=== PATIENT | female | born 1940 | race Caucasian/White ===

== ENCOUNTER 2018-10-26 12:51 | Outpatient (CLI) | payer MEDICARE ==
--- NOTE | 2018-10-26 16:11 | MRI ---
MRI OF THE LUMBAR SPINE 10/26/18 COMPARISON: None. HISTORY: Right lower extremity tingling from hip to foot, sciatica, lumbar spine radiculopathy. TECHNIQUE: Multiplanar and multisequence MR imaging of the lumbar spine is obtained without contrast. FINDINGS: The sagittal STIR imaging demonstrates no focal area of osseous marrow edema. There is anterolisthesi s of L4 on L5 measuring 5 mm. The conus medullaris terminates at the L1-2 level assuming five lumbar type vertebral bodies. T12-L1: Intervertebral disc height and signal intensity within normal limits with no significant cent ral canal or neural foraminal stenosis. L1-2: Mild bilateral facet hypertrophy. Disc space narrowing and disc desiccation and central disc pr otrusion noted with inferior migration causing a mild degree of central canal stenosis. The central disc protrusion with inferior migration measures approximately 7 mm AP dimension. No neural foraminal stenosis. L2-3: Mild bilateral facet hypertrophy. There is disc desiccation and minimal disc bulge with no cent ral canal or neural foraminal stenosis. L3-4: There is mild bilateral facet hypertrophy and hypertrophy of the ligamentum flavum. There is a small foraminal disc protrusion on the left. There is no significant central canal or neural foramina l stenosis. L4-5: Disc desiccation, disc space narrowing and disc osteophyte complex present. Severe central parth l stenosis. Bilateral facet hypertrophy present. Mild bilateral neural foraminal stenosis. L5-S1: Intervertebral disc height and signal intensity within normal limits with no significant centr al canal or neural foraminal stenosis. The imaged retroperitoneal structures demonstrate no acute findings. Nonspecific adrenal lesion noted on the left measuring 1.3 cm. IMPRESSION: 1. 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 2. 1.3 cm nonspecific adrenal mass. Recommend further assessment via CT examination of the abdom en with and without using an adrenal mass protocol. POS: COMPA
== END 2018-10-26 12:52 | disposition home or self-care (01) ==
LOC: SCSMRI 12:51
PROVIDERS: ATTEND Psychiatry & Neurology Neurology
DX: M51.16 Intervertebral disc disorders with radiculopathy, lumbar region (principal); M48.061 Spinal stenosis, lumbar region without neurogenic claudication; E27.9 Disorder of adrenal gland, unspecified
CPT/HCPCS: 72148

== ENCOUNTER 2019-01-13 03:38 | Outpatient (CLI) | payer MEDICARE ==
[2019-01-13 11:38] LABS: Hemoglobin 13.8 g/dL (12.0-16.0); Mean Corpuscular HGB CONC 33.8 g/dL (32.0-36.0); Mean Corpuscular Hemoglobin 30.1 pg (27.0-31.0); Mean Corpuscular Volume 89.1 fL (78.0-98.0); Mean Platelet Volume 7.3 fL (7.4-10.4); Platelet Count 275 thou/uL (130-400); RBC Distribution Width 10.9 % (11.5-14.5); Red Blood Cell (RBC) Count 4.57 mill/uL (4.20-5.40); White Blood Cell (WBC) Count 7.7 thou/uL (4.8-10.8)
[2019-01-13 11:44] LABS: INR-International Normal Ratio 0.9; PTT 30.4 SEC (22.9-36.1); Prothrombin Time 12.6 SEC (12.0-14.7)
[2019-01-13 12:02] LABS: Anion Gap 10 mmol/L (10-20); BUN (Urea Nitrogen) 12 mg/dL (9.8-20.1); Calc. Creatinine Clearance 0 mL/min (70-130); Calcium 9.4 mg/dL (7.8-10.44); Carbon Dioxide 27 mmol/L (23-31); Chloride 100 mmol/L (98-107); Estimated GFR-MDRD 71; Glucose 86 mg/dL (83-110); Potassium 4.2 mmol/L (3.5-5.1); Sodium 133 mmol/L (136-145)
--- NOTE | 2019-01-16 17:53 | EKG ---
Test Reason : Blood Pressure : / mmHG Vent. Rate : 057 BPM Atrial Rate : 057 BPM P-R Int : 160 ms QRS Dur : 074 ms QT Int : 430 ms P-R-T Axes : 073 063 073 degrees QTc Int : 418 ms Sinus bradycardia Septal infarct , age undetermined Abnormal ECG No previous ECGs available Confirmed by KEITH STAPLETON (2) on 01/16/2019 5:53:17 PM Referred By: MICHOACANO Confirmed By:KEITH STAPLETON
== END 2019-01-13 03:39 | disposition home or self-care (01) ==
LOC: LABBT 03:38
PROVIDERS: ATTEND Surgery
DX: Z01.818 Encounter for other preprocedural examination (principal); M54.16 Radiculopathy, lumbar region; M48.061 Spinal stenosis, lumbar region without neurogenic claudication
CPT/HCPCS: 80048; 85027; 85610; 85730; 93005; 93010

== ENCOUNTER 2019-01-19 07:17 | Day surgery (SDC) | payer MEDICARE ==
[2019-01-13 10:27] VITALS: BMI 25.4
[2019-01-19] MEDS ORDERED: Thrombin 5000 UNITS/5 ML VIAL ONE (07:51)
[2019-01-19] MEDS ORDERED: Bacitracin Zinc Ointment 30 gm TUBE ONE (07:51)
[2019-01-19] MEDS ORDERED: Levofloxacin 500 mg/D5W 100 ml Premix Bag ONE (08:03)
[2019-01-19] MEDS ORDERED: Clindamycin/D5W 900 mg/50 ml Premix Bag ONE (08:03)
[2019-01-19] MEDS ORDERED: Sodium Chloride 0.9% 10 ML ONE (08:03)
[2019-01-19] MEDS ORDERED: Fentanyl 100 MCG/2 ML VIAL ONE ×3 (08:11→12:45)
[2019-01-19] MEDS ORDERED: Mag-Al 1200 mg/1200 mg/30 ML UDCUP PO PRN (11:34)
[2019-01-19] MEDS ORDERED: Morphine 2 MG/ML SYRINGE SLOW IVP PRN (11:34)
[2019-01-19] MEDS ORDERED: Promethazine HCl 25 MG/ML VIAL IVPB PRN (11:34)
[2019-01-19] MEDS ORDERED: Fleet Enema 133 ML BOT PR PRN (11:34)
[2019-01-19] MEDS ORDERED: Bisacodyl 10 MG SUPP PR PRN (11:34)
[2019-01-19] MEDS ORDERED: Acetaminophen 325 MG TAB PO PRN (11:34)
[2019-01-19] MEDS ORDERED: Milk Of Magnesia 30 ML UDCUP PO PRN (11:34)
[2019-01-19] MEDS ORDERED: Loteprednol Etabonate 0.5% Ophth Suspension 5 ml Bottle EA EYE PRN (11:37)
[2019-01-19] MEDS ORDERED: diphenhydrAMINE 50 MG/ML VIAL ONE ×2 (12:02→12:03)
[2019-01-19] MEDS ORDERED: Morphine 4 MG/ML VIAL ONE (12:29)
[2019-01-19] MEDS ORDERED: Promethazine HCl 12.5 MG in Sodium Chloride 0.9% 50 ML IVPB PRN (13:42)
[2019-01-19] MEDS ORDERED: Morphine 2 MG/ML SYRINGE ONE (13:45)
[2019-01-19] MEDS ORDERED: ePHEDrine 50 MG/ML VIAL ONE (14:19)
[2019-01-19] MEDS ORDERED: PROPOFOL 200 MG/20 ML VIAL ONE (14:19)
[2019-01-19] MEDS ORDERED: Rocuronium Bromide 10 MG/ML (10ML VIAL) ONE (14:19)
[2019-01-19] MEDS ORDERED: Ondansetron PF 4 MG/2 ML Vial ONE (14:19)
[2019-01-19] MEDS ORDERED: Dexamethasone 20 MG/5 ML VIAL ONE (14:19)
[2019-01-19] MEDS ORDERED: Glycopyrrolate 0.2 MG/ML 5 ML SYRINGE ONE (14:19)
[2019-01-19] MEDS ORDERED: Lidocaine 1% PF 5 ML VIAL ONE (14:19)
[2019-01-19] MEDS: Sodium Chloride 0.9% 1,000 ML IV SCH (14:50)
[2019-01-19] MEDS ORDERED: Promethazine HCl 25 MG/ML VIAL IM/IV PRN (15:00)
[2019-01-19] MEDS ORDERED: Morphine 4 MG/ML VIAL SLOW IVP PRN (15:00)
[2019-01-19] MEDS ORDERED: Ondansetron HCl/PF 4 MG/2 ML Vial IVP PRN (15:00)
[2019-01-19] MEDS ORDERED: Morphine Sulfate 2 MG/ML SYRINGE SLOW IVP PRN (15:17)
--- NOTE | 2019-01-19 15:52 | OP ---
DATE OF PROCEDURE: 01/19/2019 OPERATING ROOM: OR 11. WOUND CLASSIFICATION: Type 1 wound. SR VICE PRESIDENT: Tato Garcia PA-C PREPROCEDURE DIAGNOSIS: Low back and leg pain with lumbar disk extrusion and lumbar stenosis. POSTPROCEDURE DIAGNOSIS: Low back and leg pain with lumbar disk extrusion and lumbar stenosis. PROCEDURES PERFORMED: 1. L4-L5 laminectomy, partial facetectomy, foraminotomy with left L4-L5 diskectomy. 2. Use of operative microscope for microdissection. DESCRIPTION OF PROCEDURE: After informed consent was obtained from the patient, the patient was brought to the OR. Proper patient, pause, and identification were carried out. She was placed under excellent endotracheal anesthesia and positioned prone on the OR table. All appropriate points were padded. We identified the L4-L5 dorsal spines. A linear khalif was made over this area. This region was sterilely cleansed, prepared, and draped. Proper patient, pause, and identification were carried out. The wound was then opened with a combination of sharp, monopolar, and blunt dissection. We exposed the L4-L5 segment. Localization film confirmed our area of interest. We then performed an L4-L5 laminectomy, partial facetectomy, and foraminotomy with excellent decompression of the common dural tube. Then, brought the microscope in for microdissection. I am working over the shoulder of the left L5 nerve root. Disk material was removed. We had excellent decompression of the common dural tube and bilateral L4 and L5 nerve roots. Copious irrigation occurred throughout as did maximizing hemostasis. There was no spinal fluid leak. The wound was then closed in anatomic layers. The patient then emerged from anesthesia. Job ID: [id number]
[2019-01-19] MEDS: diphenhydrAMINE 25 MG CAP PO PRN (16:32)
[2019-01-19] MEDS: HYDROcodone/Acetaminophen 7.5/325 mg Tablet PO PRN (16:58)
[2019-01-19] MEDS: traMADol HCl 50 MG TAB PO PRN (20:05)
[2019-01-19] MEDS ORDERED: Gabapentin 300 MG CAP PO SCH (21:00)
[2019-01-20] MEDS: HYDROcodone/Acetaminophen 7.5/325 mg Tablet PO PRN ×3 (00:46→10:50)
[2019-01-20] MEDS: diphenhydrAMINE 25 MG CAP PO PRN ×2 (00:49→06:51)
[2019-01-20] MEDS: Sodium Chloride 0.9% 1,000 ML IV SCH (03:50)
[2019-01-20] MEDS: traMADol HCl 50 MG TAB PO PRN (06:13)
[2019-01-20] MEDS ORDERED: Vancomycin HCl 1 GM in Premix Bag 1 BAG IVPB SCH (09:00)
[2019-01-20] MEDS ORDERED: cycloSPORINE 0.05% Ophthalmic Droperette EA EYE SCH (09:00)
[2019-01-20] MEDS ORDERED: Lactinex Tablet PO SCH (09:00)
--- NOTE | 2019-01-20 09:54 | PRG ---
DATE OF SERVICE: 01/20/2019 SUBJECTIVE: Ms. Villegas is postoperative day 1 from lumbar decompression and diskectomy. She has had resolution in her leg pain. She is mobilizing. We are working on incisional pain control, but otherwise very pleased with how she is doing at this point. We will plan for dismissal. Job ID: [id number]
[2019-01-20 12:09] VITALS: BP 119/66; TEMP 97.6
[2019-01-21] MEDS ORDERED: Loratadine 10 MG TAB PO SCH (09:00)
== END 2019-01-20 14:08 | disposition home or self-care (01) ==
LOC: SDC 07:17 → SURG A 14:16 → SDC 01-20 14:08
PROVIDERS: ATTEND Surgery
PROC: 01NB0ZZ Release Lumbar Nerve, Open Approach (ICD-10-PCS; principal; 2019-01-19)
DX: M48.061 Spinal stenosis, lumbar region without neurogenic claudication (principal); M51.16 Intervertebral disc disorders with radiculopathy, lumbar region; Z88.5 Allergy status to narcotic agent; Z88.1 Allergy status to other antibiotic agents; Z88.0 Allergy status to penicillin; Z88.7 Allergy status to serum and vaccine; Z79.899 Other long term (current) drug therapy
CPT/HCPCS: 76000; J1100; J1200; J1956; J2001; J2270; J2405; J2550; J2704; J3010; J3370; J3490; J7050; Q0163

== ENCOUNTER 2020-05-20 12:10 | Outpatient (CLI) | payer MEDICARE ==
--- NOTE | 2020-05-20 13:33 | ULT ---
CAROTID DOPPLER: Ultrasound and Doppler studies performed on the extracranial carotid arteries. Color Doppler, spectra l analysis, and velocity recordings obtained. INDICATION: Carotid stenosis on the right FINDINGS: Arch and images show moderate echogenic plaque bilaterally. Increased velocities are recorded in the right internal carotid artery at 132 cm/s systolic. This morrow s indicate hemodynamically significant stenosis. Velocities are normal in the left internal carotid artery. Vertebral arteries show antegrade flow. IMPRESSION: 1. Moderate echogenic plaque bilaterally 2. Evidence of hemodynamically significant stenosis in the proximal right internal carotid artery. Ve locities indicate stenosis in the 50-59% diameter range.
== END 2020-05-20 12:11 | disposition home or self-care (01) ==
LOC: BICULT 12:10
PROVIDERS: ATTEND Family Medicine
DX: I65.23 Occlusion and stenosis of bilateral carotid arteries (principal)
CPT/HCPCS: 93880